=== PATIENT | female | born 1940 | race Caucasian/White ===

== ENCOUNTER 2023-10-09 20:11 | Emergency (ER) | payer MEDICARE, SELFPAY ==
[2023-10-09 20:21] VITALS: BP 161/57; BP 170/76; PULSE 55; PULSE 60; RESP 18; TEMP 37.1; O2SAT 98; O2SAT 99; BMI 28.0
[2023-10-09 20:24] VITALS: BP 161/57; PULSE 56; RESP 17; TEMP 37.1; O2SAT 98
--- NOTE | 2023-10-09 20:34 | ECG_ITS ---
Test Reason : L ARM PAIN Blood Pressure : / mmHG Vent. Rate : 054 BPM Atrial Rate : 054 BPM P-R Int : 146 ms QRS Dur : 094 ms QT Int : 428 ms P-R-T Axes : 059 057 018 degrees QTc Int : 405 ms Sinus bradycardia with sinus arrhythmia Otherwise normal ECG When compared with ECG of 30-MAR-2014 16:20, No significant change was found Referred By: Chanel Kaminski Electronically Signed By:DALE CLANCY
[2023-10-09 21:30] LABS: MANUAL DIFF FLAG NO
[2023-10-09 21:32] LABS: Basophils Percent Auto 0.2 % (0-2); Eosinophils Absolute Auto 0.1 X10*3/uL (0.0-0.4); Eosinophils Percent Auto 0.4 % (0-4); Hematocrit 38.3 % (37.0-47.0); Hemoglobin 13.2 g/dl (12.0-16.0); Imm Gran Abs Auto 0.05 X10*3/uL (0.00-0.03); Imm Gran Pct Auto 0.4 % (0.0-0.4); Mean Corpuscular HGB Conc 34.5 g/dl (31.0-35.0); Mean Corpuscular Hemoglobin 29.5 pg (27.0-33.0); Mean Corpuscular Volume 85.7 fL (80.0-98.0); Mean Platelet Volume 9.7 fL (9.4-12.3); Monocytes Absolute Auto 1.2 X10*3/uL (0.1-1.2); Monocytes Percent Auto 9.7 % (2-11); Neutrophils Absolute Auto 9.8 x10*3/uL (2.0-8.3); Neutrophils Percent Auto 81.3 % (45-73); Platelet Count 192 X10*3/uL (160-400); Red Blood Count 4.47 X10*6/uL (4.20-5.50); Red Cell Distribution Width 14.2 % (11.0-16.0); White Blood Count 12.1 X10*3/uL (4.8-10.8)
--- NOTE | 2023-10-09 21:49 | ED_ITS ---
HPI - Extremity Problem General Chief complaint: Extremity Injury, Upper Stated complaint: L ARM PAIN Time Seen by Provider: 10/09/23 20:31 Source: patient and family Mode of arrival: ambulatory Limitations: no limitations History of Present Illness ED Provider: Dr. Chanel Kaminski HPI Narrative: Patient comes to the emergency room complaining of left-sided arm pain that started couple of days ago, after doing some gardening work outside. Patient denies any chest pain. Patient states that as long as she does not move the left arm, her arm does not hurt. Patient denies any trauma or any falls. Related Data Home Medications ?Medication ?Instructions ?Recorded ?Confirmed fluticasone propionate 110 2 puff inhalation BID 08/18/20 mcg/actuation HFA aerosol inhaler hydrochlorothiazide 25 mg tablet 25 mg PO DAILY 08/18/20 levothyroxine 75 mcg tablet 75 mcg PO DAILY 08/18/20 metoprolol tartrate 25 mg tablet 25 mg PO BID 08/18/20 Previous Rx's ?Medication ?Instructions ?Recorded prednisone 10 mg tablet 10 mg PO DAILY #28 tabs 10/24/21 naproxen 500 mg tablet 500 mg PO BID PRN pain #20 tabs 10/09/23 Allergies Allergy/AdvReac Type Severity Reaction Status Date / Time monosodium glutamate Allergy Severe HIVES ALL Verified 10/09/23 20:25 OVER BODY MSG Allergy Unknown Unknown Uncoded 08/24/20 08:22 Review of Systems 2 Review of Systems: Constitutional : No Weight loss, No Fever, No Chills, No Night Sweats, No Fatigue, No Malaise ENT/Mouth : No Hearing loss, No Ear Pain, No Nasal Congestion, No Sinus Pain, No Hoarseness, No sore throat, No Rhinorrhea, No Swallowing Difficulty Eyes: No Eye Pain, No Swelling, No Redness, No Foreign Body, No Discharge, No Vision Changes Cardiovascular : No Chest Pain, No SOB, No Dyspnea on Exertion, No Orthopnea, No Edema, No Palpitations Respiratory : No Cough, No Sputum, No Wheezing, No Smoke Exposure, No Dyspnea Gastrointestinal : No Nausea, No Vomiting, No Diarrhea, No Constipation, No abdominal Pain, No Hematochezia, No Melena Genitourinary : no irregular bleeding, No Dysuria, No Urinary Frequency, No Hematuria, No Urinary Incontinence, No Urgency, No Flank Pain, No Urinary Flow Changes, No Hesitancy Musculoskeletal : Complaining of left arm pain , especially the left shoulder, no Joint Swelling Skin : No Skin Lesions, No rash Neuro : No Weakness, No Numbness, No Paresthesias, No Loss of Consciousness, No Dizziness, No Headache Psych : No Anxiety/Panic, No Depression, No SI/HI/AH/VH, No Social Issues, Heme/Lymph: No Bruising, No Bleeding,No Lymphadenopathy Endocrine : No Polyuria, No Polydipsia, No Temperature Intolerance [facility] Past Medical History Medical History Asthma High cholesterol Hypothyroid Surgical History (Updated 10/09/23 @ 20:30 by Val Lopez RN) S/P appendectomy History of hysterectomy History of heart artery stent Social History Social History Smoked in Last 30 Days: No Use of substances other than those prescribed or required for medical reasons: No Advance Directives: No Advance Directives Information Provided: Yes Do you have a plan to hurt others: No Plan Physical Exam 2 Vital Signs: Vital Signs: Last Vital Signs Temp 98.7 F 10/09/23 20:24 Pulse 56 10/09/23 20:24 Resp 17 10/09/23 20:24 BP 161/57 H 10/09/23 20:24 Pulse Ox 98 10/09/23 20:24 O2 Del Method Room Air 10/09/23 20:24 BMI result Body Mass Index 28.0 Const: Other: Appearance: Alert. Oriented X3. No acute distress. Eyes: Pupils equal, round and reactive to light. ENT: Pharynx normal. Neck: Normal inspection. Neck supple. No lymph nodes noted. No crepitus CVS: Normal heart rate and rhythm. Pulses normal. Normal S1 and S2 Respiratory: No respiratory distress. Breath sounds normal. No Wheezing. No rales Abdomen: Soft and nontender. No rigidity. No distention. Skin: Skin warm and dry. Normal skin color. Normal skin turgor. Extremities: No lower extremity edema. No Lacerations. No Rash. Patient able to abduct the arm almost all the way up. However, after 45 degrees it starts hurting Neuro: Oriented X 3. No motor deficit. No sensory deficit. Moving all extremities. No slurred speech. CN 2 through 12 grossly intact Psych: calm, cooperative, normal affect Medications Administered Discontinued Medications Generic Name Dose Route Start Last Admin Trade Name Kip PRN Reason Stop Dose Admin Ketorolac Tromethamine 30 mg 10/09/23 21:32 10/09/23 21:53 Ketorolac Tromethamine 30 Mg/Ml Vial IVPUSH 10/09/23 21:33 Not Given ONCE ONE Morphine Sulfate 1 mg 10/09/23 21:50 10/09/23 22:00 Morphine Sulfate 2 Mg/Ml Cartridge IVPUSH 10/09/23 21:51 1 mg ONCE ONE Administration Protocol Medical Decision Making Medical Decision Making [facility] Narrative: -my interpretation of EKG: Normal sinus rhythm, heart rate 54, no ST segment depression or elevation, nonspecific T-wave inversion in lead 3, QTC 405 -my interpretation of labs: White blood cell count 12.1, likely reactive leukocytosis. Sodium within normal limits. Patient's T bili 1.9, D bili 0.6, AST and ALT within normal limits. Patient has no abdominal pain or epigastric pain. Troponin 4.4 -at this time, an x-ray of the shoulder would be noncontributory -discussed with the patient that she will be needing anti-inflammatories, is possible that patient may need an MRI if she does not improve with her medications within the next week Differential Diagnosis Differential Diagnoses: The differential diagnosis associated with the presentation includes (Tendinitis, bursitis, rotator cuff injury, ACS) Lab Data [facility] Lab Attestation statement: I reviewed the patient's lab results. 10/09/23 21:26 10/09/23 21:26 Labs: Lab Results 10/09/23 Range/Units 21:26 WBC 12.1 H (4.8-10.8) X10*3/uL RBC 4.47 (4.20-5.50) X10*6/uL Hgb 13.2 (12.0-16.0) g/dl Hct 38.3 (37.0-47.0) % MCV 85.7 (80.0-98.0) fL MCH 29.5 (27.0-33.0) pg MCHC 34.5 (31.0-35.0) g/dl RDW 14.2 (11.0-16.0) % Plt Count 192 (160-400) X10*3/uL MPV 9.7 (9.4-12.3) fL Immature Gran % (Auto) 0.4 (0.0-0.4) % Neut % (Auto) 81.3 H (45-73) % Lymph % (Auto) 8.0 L (20-40) % [place] % (Auto) 9.7 (2-11) % Eos % (Auto) 0.4 (0-4) % Baso % (Auto) 0.2 (0-2) % Lymph # (Auto) 1.0 L (1.2-4.9) X10*3/uL [place] # (Auto) 1.2 (0.1-1.2) X10*3/uL Eos # (Auto) 0.1 (0.0-0.4) X10*3/uL Baso # (Auto) 0.0 (0.0-0.2) X10*3/uL Abs Immat Gran (auto) 0.05 H (0.00-0.03) X10*3/uL Absolute Neuts (auto) 9.8 H (2.0-8.3) x10*3/uL Absolute Nucleated RBC 0.000 (0.0-0.012) X10*3/uL Nucleated RBC % (auto) 0.0 (0.0-0.2) /100WBC Sodium 140 (135-145) mmol/L Potassium 3.7 (3.3-5.1) mmol/L Chloride 108 (96-108) mmol/L Carbon Dioxide 22 (22-29) mmol/L Anion Gap 14 (12-20) BUN 15 (9-16) mg/dL Creatinine 0.70 (0.5-1.4) mg/dL Estim Creat Clear Calc 55.6 Estimated GFR > 60 Random Glucose 92 (60-115) mg/dL Calcium 9.1 (8.4-10.2) mg/dL Total Bilirubin 1.9 H (0.0-1.0) mg/dL Direct Bilirubin 0.6 H (0.0-0.5) mg/dL AST 16 (5-31) U/L ALT 15 (0-31) U/L Alkaline Phosphatase 95 (39-117) U/L Troponin I High Sens 4.4 (<3.5-17.0) ng/L Total Protein 7.1 (6.5-8.0) g/dL Albumin 3.8 (3.5-5.0) g/dL Discharge Plan Discharge Clinical Impression: Tendinopathy of left shoulder Patient Disposition: Home, Self-Care Instructions: Shoulder Pain (ED) Additional Instructions: Please follow-up with your primary care physician tomorrow. If you have any worsening or new symptoms, please return to the emergency room or call 911 Prescriptions: New naproxen 500 mg tablet 500 mg PO BID PRN (Reason: pain) Qty: 20 0RF No Action metoprolol tartrate 25 mg tablet 25 mg PO BID levothyroxine 75 mcg tablet 75 mcg PO DAILY Flovent HFA 110 mcg/actuation HFA aerosol inhaler 2 puff inhalation BID hydrochlorothiazide 25 mg tablet 25 mg PO DAILY prednisone 10 mg tablet 10 mg PO DAILY Qty: 28 0RF Rx Instructions: 6 pills by mouth day 1, 6 pills by mouth day 2, 5 pills by mouth day 3, 4 pills by mouth day 4, 3 pills by mouth day 5, 2 pills by mouth day 6, 1 pill by mouth day 7 and 1 pill by mouth day 8. Referrals: Cedrick Dozier PA-C [Physician In School Suspension Coordinator] - 10/10/23 Print Language: Prydein[place]
[2023-10-09 21:53] LABS: Alanine Aminotransferase 15 U/L (0-31); Albumin Level 3.8 g/dL (3.5-5.0); Alkaline Phosphatase 95 U/L (39-117); Anion Gap 14 (12-20); Aspartate Amino Transferase 16 U/L (5-31); Bilirubin Direct 0.6 mg/dL (0.0-0.5); Bilirubin Total 1.9 mg/dL (0.0-1.0); Blood Urea Nitrogen 15 mg/dL (9-16); Calcium 9.1 mg/dL (8.4-10.2); Carbon Dioxide 22 mmol/L (22-29); Chloride 108 mmol/L (96-108); Creatinine Clr Calc Pharmacy 55.6; Estimated Glomerular Filt Rate > 60; Glucose Random 92 mg/dL (60-115); Potassium 3.7 mmol/L (3.3-5.1); Sodium 140 mmol/L (135-145); Total Protein 7.1 g/dL (6.5-8.0)
[2023-10-09 22:00] LABS: Troponin-I High Sensitivity 4.4 ng/L (<3.5-17.0)
[2023-10-09] MEDS: Morphine Sulfate 2 MG/ML CARTRIDGE 1 MG IVPUSH (22:00)
[2023-10-09 23:04] VITALS: BP 161/57; PULSE 56; RESP 17; TEMP 37.1; O2SAT 98
== END 2023-10-09 23:05 | disposition home or self-care (01) ==
PROVIDERS: Emergency Provider Emergency Medicine
DX: M79.602 Pain in left arm (principal); M77.8 Other enthesopathies, not elsewhere classified
CPT/HCPCS: 36415; 80048; 80076; 84484; 85025; 93005; 96374; 99284; J2270

== ENCOUNTER → 2023-10-09 20:34 | Outpatient (BNV) | payer MEDICARE, SELFPAY | PROVIDERS: Emergency Provider Emergency Medicine; Visit Provider Internal Medicine | DX: I49.9 Cardiac arrhythmia, unspecified (principal) | CPT/HCPCS: 93010 ==